=== PATIENT | female | born 1955 | race Caucasian/White ===

== ENCOUNTER → 2017-04-10 10:11 | Outpatient (CLI) | payer MEDICARE, SELFPAY ==
--- NOTE | 2017-04-10 10:15 | MM_ITS ---
MM Dig screening mamm BI w/CAD CAD Screening COMPARISON: Digital mammograms 02/03/2014 and 02/24/2015 INDICATION: There is no personal or family history of breast cancer. There is been previous biopsy right breast. TECHNIQUE: Standard CC and MLO images were obtained. R2 CAD reviewed. FINDINGS: There is a diffusely dense and heterogenic parenchymal pattern lessening the sensitivity of mammography. There are few scattered benign-appearing calcification in each breast and there is a biopsy clip right breast. There is no new or suspicious lesion in either breast and there are no suspicious microcalcifications. IMPRESSION: Stable exam with dense parenchymal pattern, recommend yearly follow-up BI-RADS Category: 2 Benign Finding(s) RECOMMENDED FOLLOW-UP: 1YR - 1 YEAR FOLLOW-UP (A letter has been sent to the patient regarding results of the study.)
== END ==
PROVIDERS: PCP Family Medicine; Visit Provider Obstetrics & Gynecology
DX: Z12.31 Encounter for screening mammogram for malignant neoplasm of breast (principal)
CPT/HCPCS: 77067

== ENCOUNTER → 2018-04-30 10:28 | Outpatient (CLI) | payer MEDICARE, SELFPAY ==
--- NOTE | 2018-04-30 10:30 | XR_ITS ---
XR DEXA axial skeleton HISTORY: ITS.REASON: screening ORDERING PHYSICIAN: Emmanuel Cooper MD PATIENT AGE: 63 years COMPARISON: 05/18/2011 FINDINGS: The BMD measured at the Right femoral neck is 1.050 g/cm squared with a T score of 0.1. This is considered Normal according to the World Health Organization criteria. Fracture risk is Low. The L1 L4 density has a T score of 4.1. Lumbar spine density has increased by 4.8%. The hip density has decreased 5%. IMPRESSION: Normal bone density. Recommend follow-up exam for a 2020
--- NOTE | 2018-04-30 10:30 | MM_ITS ---
MM Dig screening mamm BI w/CAD CAD Screening COMPARISON: Digital mammograms with CAD 02/24/2015 and 04/10/2017 INDICATION: There is no personal or family history of breast cancer. There has been a previous biopsy right breast for benign disease. TECHNIQUE: Standard CC and MLO images were obtained. R2 CAD reviewed. FINDINGS: There is a diffusely dense and heterogenic parenchymal pattern lessening the sensitivity of mammography. There are scattered benign-appearing microcalcifications in each breast. There is a biopsy clip right breast. There is no suspicious lesion and there are no suspicious microcalcifications. IMPRESSION: Stable exam with dense heterogenic parenchyma and no suspicious lesion seen BI-RADS Category: 2 Benign Finding(s) RECOMMENDED FOLLOW-UP: 1YR - 1 YEAR FOLLOW-UP (A letter has been sent to the patient regarding results of the study.)
== END ==
PROVIDERS: PCP Family Medicine; Visit Provider Obstetrics & Gynecology
DX: Z78.0 Asymptomatic menopausal state (principal); Z12.31 Encounter for screening mammogram for malignant neoplasm of breast; Z13.820 Encounter for screening for osteoporosis
CPT/HCPCS: 77067; 77080

== ENCOUNTER → 2019-05-20 08:05 | Outpatient (CLI) | payer MEDICARE, SELFPAY ==
--- NOTE | 2019-05-20 08:12 | XR_ITS ---
PROCEDURE: XR DEXA AXIAL SKELETON CLINICAL HISTORY: Dexa Scan- Post menopausal COMPARISON: No exams were available for comparison FINDINGS: Right femoral neck density is 0.977 grams/centimeters sq with a T-score of 1.2. Left femoral neck density is 0.914 grams/centimeter sq with T-score 0.6. L1-L4 density is 1.318 grams/centimeters sq with a T-score of 2.5. IMPRESSION: Normal bone density. Low fracture risk. Recommend follow-up exam in 2 years Dictated by: Prashanth Bello MD 05/20/2019 12:37 Electronically signed by Prashanth Bello MD in [place] 05/20/2019 12:37
--- NOTE | 2019-05-20 08:12 | MM_ITS ---
PROCEDURE: MM DIG SCREENING MAMM BI W/CAD CLINICAL INDICATION: Routine Screening Mammogram There is no personal or family history of breast cancer. There has been a previous biopsy right breast for benign disease. COMPARISON: [facility] DIG MAMM-SCREEN TOPHER from 02/24/2015 [facility] MM Dig screening mamm BI w/CAD from 04/10/2017 [facility] MM Dig screening mamm BI w/CAD from 04/30/2018 TECHNIQUE: Standard CC and MLO images and 3D Tomosynthesis was obtained. R2 CAD reviewed. FINDINGS: There is a diffusely dense and heterogenic parenchymal pattern somewhat lessening the sensitivity of mammography. Yeyo images are most helpful in this type of breast parenchyma and I see no suspicious abnormality. There is a biopsy clip right breast. There couple of benign-appearing microcalcifications in each breast there is no suspicious lesion and no suspicious microcalcifications. IMPRESSION: Diffusely dense parenchymal pattern with no suspicious lesions seen BI-RAD Category: FOLLOW-UP: 1YR 1 Year Follow-up (A letter has been sent to the patient regarding results of the study.) Dictated by: Dr. Dami Haque MD 05/26/2019 15:[address] Dami Haque MD in [place] 05/26/2019 15:16
== END ==
PROVIDERS: PCP Family Medicine; Visit Provider Obstetrics & Gynecology
DX: Z12.31 Encounter for screening mammogram for malignant neoplasm of breast (principal); Z78.0 Asymptomatic menopausal state
CPT/HCPCS: 77063; 77067; 77080

== ENCOUNTER → 2019-11-18 11:56 | Outpatient (POV) | payer MEDICARE, SELFPAY | PROVIDERS: Visit Provider Nurse Practitioner Family | DX: Z00.00 Encounter for general adult medical examination without abnormal findings (principal) ==

== ENCOUNTER → 2019-12-09 11:07 | Outpatient (CLI) | payer MEDICARE, SELFPAY ==
[2019-12-10 15:03] LABS: H. pylori Breath Test Positive (Negative)
== END ==
PROVIDERS: Visit Provider Nurse Practitioner Family
DX: R10.9 Unspecified abdominal pain (principal); R13.10 Dysphagia, unspecified; B96.81 Helicobacter pylori [H. pylori] as the cause of diseases classified elsewhere; R19.4 Change in bowel habit; R19.7 Diarrhea, unspecified; Z12.11 Encounter for screening for malignant neoplasm of colon
CPT/HCPCS: 83013

== ENCOUNTER → 2019-12-21 08:56 | Outpatient (CLI) | payer MEDICARE, SELFPAY ==
[2019-12-21 10:24] LABS: Coronavirus 19 IgG Antibody Negative (Negative); Coronavirus 19 IgM Antibody Negative (Negative)
== END ==
PROVIDERS: Visit Provider Internal Medicine Gastroenterology
DX: Z01.89 Encounter for other specified special examinations (principal); Z12.11 Encounter for screening for malignant neoplasm of colon
CPT/HCPCS: 36415; 86328

== ENCOUNTER 2019-12-23 09:07 | Day surgery (SDC) | payer MEDICARE, SELFPAY ==
[2019-12-17 12:53] VITALS: BMI 42.0
[2019-12-23] VITALS (8 sets, daily range): BP systolic 123–177; BP diastolic 63–84; PULSE 73–87; RESP 18–20; TEMP 36.6–36.8; O2SAT 94–97
--- NOTE | 2019-12-23 10:52 | HMH.PROC ---
[facility] Procedure Note Procedure Note:: Colonoscopy Procedure Report: Colonoscopy with cold snare polypectomy and Endo Clip placement Endoscopist: Orville Trujillo II, MD Referring physician: ANIRUDH Rodriguez Date of Procedure: December 23, 2019 Equipment: Olympus 180 variable stiffness pediatric colonoscope Sedation: MAC sedation Indication: Mrs. Goodman is a 64-year-old female who is here for follow-up screening/surveillance colonoscopy. She does have a strong family history of colon cancer on her paternal side of the family but is uncertain which family members had colon cancer. Her last colonoscopy was 7 to 8 years ago. She has had some bowel irregularity with intermittent abdominal cramping discomfort and diarrhea. She reports no rectal bleeding or weight loss. Procedure: Prior to the procedure, a history and physical exam was performed, and patient's medications and allergies were reviewed. The risks, benefits and alternatives of the sedation and procedure were discussed with the patient. All questions were answered and informed consent was obtained. The patient was brought to the procedure room. Patient identification and proposed procedure were verified by the physician and the nurse. The patient was placed in a left lateral decubitus position and the scope was passed under direct vision. Throughout the procedure, the patient's blood pressure, pulse, and oxygen saturations were monitored continuously. The colonoscopy was accomplished without difficulty. The patient tolerated the procedure well. Findings: On digital rectal examination there was normal rectal tone. There were no external hemorrhoids. The colonoscope was introduced through the anal canal to the rectum and advanced to the cecum. The ileocecal valve and appendiceal orifice were identified. The scope was advanced a short distance into the ileum which appeared grossly normal. The scope was then withdrawn into the colon. The cecum, ascending and transverse colon and mucosa were grossly normal. There was a 8 mm polyp in the descending colon removed via cold snare polypectomy. There was minor heme at the polypectomy site so a single Endo Clip was placed which provided full hemostasis. There were very mildly scattered diverticuli throughout the descending and sigmoid colon (LEFT colon). The rectum itself was normal. Upon retroflexion within the rectum there were grade 1-2 internal hemorrhoids. The preparation was excellent throughout with [place] Preparation Score of 9. The cecal time was 12 minutes. Impression: 1. Descending colon polyp (8 mm) 2. Mild left-sided diverticulosis 3. Grade 1-2 internal hemorrhoids Plan: I will follow up the polyp pathology and recommend repeat colonoscopy again in 5 years based upon the polyp histology and patient's family history. I would encourage fiber supplementation on a long-term daily maintenance basis.
--- NOTE | 2019-12-23 11:06 | P.PN_ITS ---
[facility] Anesthesia Checklist - Structural Data Admitted From: Home Planned Operative Procedure/s: colonoscopy Consent for Planned Operative Procedure(s) Verified: Yes - Additional verifications Anesthesia Reactions: No Hx Blood Transfusions: No Blood Transfusion Reaction: No - Airway Assessment C-Spine Mobility Assessed: Yes TMJ Mobility Assessed: Yes Dentition: Good Dentition - Neurological Assessment Level of Consciousness: Awake, Alert, Appropriate - Anesthesia Plan Anesthesia Risk discussed: Yes Anesthesia Plan: Verified ASA Class: II Anesthesia Type: MAC [facility] History I have reviewed the patient's past medical history: Yes Medical History: Reports:: Cardiomyopathy, Hypertension, Urinary Tract Infection Denies:: Cancer, Diabetes Mellitus Type 1, Diabetes Mellitus Type 2, Internal Pacemaker, MRSA, Seizures *Have you ever received a pneumonia vaccine?: No *Have you received a flu vaccine this season?: Yes Other Medical History: Reports: Anemia, Chemotherapy, Other. Denies: Blood Transfusion Reaction Anesthesia experience/problems:: none Laterality Cases: Bilateral: Tonsillectomy, Other Other Surgeries: Yes: Other. No: Pacemaker Amputation: No Fractures: No - *Social History Last grade of school completed: Advanced degree Smoking Status: Never smoker Alcohol Intake: never Alcohol Intake Frequency:: other Substance Use Type: denies use *Occupational Status:: disabled Housing: house Household Members: spouse *Travel in the last 8 weeks: None Family Hx:: Hypertension, Diabetes, Stroke, Cancer
== END 2019-12-23 12:15 | disposition home or self-care (01) ==
LOC: OUTP 09:10
PROVIDERS: PCP Family Medicine; Visit Provider Internal Medicine Gastroenterology
PROC: 0DJD8ZZ Inspection of Lower Intestinal Tract, Via Natural or Artificial Opening Endoscopic (ICD-10-PCS; CPT 45378; principal; 2019-12-23 10:00)
DX: Z12.11 Encounter for screening for malignant neoplasm of colon (principal); K63.5 Polyp of colon; K57.30 Diverticulosis of large intestine without perforation or abscess without bleeding; K64.0 First degree hemorrhoids; I10 Essential (primary) hypertension; K21.9 Gastro-esophageal reflux disease without esophagitis; I42.9 Cardiomyopathy, unspecified; D64.9 Anemia, unspecified; Z79.899 Other long term (current) drug therapy
CPT/HCPCS: 45385; 88305

== ENCOUNTER → 2020-03-09 09:53 | Outpatient (CLI) | payer MEDICARE, SELFPAY ==
[2020-03-10 16:00] LABS: H. pylori Breath Test Negative (Negative)
== END ==
PROVIDERS: Visit Provider Nurse Practitioner Family
DX: R13.10 Dysphagia, unspecified (principal); B96.81 Helicobacter pylori [H. pylori] as the cause of diseases classified elsewhere; R19.4 Change in bowel habit; R10.9 Unspecified abdominal pain; Z12.11 Encounter for screening for malignant neoplasm of colon
CPT/HCPCS: 83013

== ENCOUNTER → 2020-04-20 10:25 | Outpatient (CLI) | payer MEDICARE, SELFPAY ==
--- NOTE | 2020-04-20 10:27 | MM_ITS ---
PROCEDURE: MM DIG SCREENING MAMM BI W/CAD Digital Breast Tomosynthesis Included CLINICAL INDICATION: Routine Screening Mammogram There is no personal or family history of breast cancer. There has been a previous biopsy right breast for benign disease. COMPARISON: [facility] MM Dig screening mamm BI w/CAD from 04/10/2017 [facility] MM Dig screening mamm BI w/CAD from 04/30/2018 MG MM DIG SCREENING MAMM BI W/CAD from 05/20/2019 TECHNIQUE: Standard CC and MLO images and 3D Tomosynthesis was obtained. R2 CAD reviewed. FINDINGS: Moderate diffuse somewhat heterogenic fibroglandular densities are seen throughout both breast and the findings are fairly symmetrical and bilateral. There is a biopsy clip right breast. There is a mole marker left breast. There are few scattered benign-appearing microcalcifications in each breast. There is no new or suspicious lesion in either breast and no suspicious microcalcifications. IMPRESSION: Moderate diffuse breast density with no suspicious lesions seen BI-RAD Category: 2 Benign Finding(s) FOLLOW-UP: 1YR 1 Year Follow-up (A letter has been sent to the patient regarding results of the study.) Dictated by: Dr. Dami Haque MD 04/22/2020 10:39 Dr. Dami Haque MD in [place] 04/22/2020 10:39
== END ==
PROVIDERS: PCP Family Medicine; Visit Provider Obstetrics & Gynecology
DX: Z12.31 Encounter for screening mammogram for malignant neoplasm of breast (principal)
CPT/HCPCS: 77063; 77067

== ENCOUNTER → 2020-05-18 09:17 | Outpatient (POV) | payer MEDICARE, SELFPAY | PROVIDERS: Visit Provider Nurse Practitioner Family | DX: Z00.00 Encounter for general adult medical examination without abnormal findings (principal) ==

== ENCOUNTER 2020-10-30 14:30 | Emergency (ER) | payer MEDICARE, SELFPAY ==
[2020-10-30 14:35] VITALS: BP 143/69; PULSE 76; RESP 18; TEMP 37.1; O2SAT 96; BMI 43.9
[2020-10-30 15:05] VITALS: BP 143/69; PULSE 76; RESP 18; TEMP 37.1; O2SAT 96
--- NOTE | 2020-10-30 15:14 | HMH.EDUTC ---
[facility] [place]: Exposure to COVID-19 virus Disposition: Home, Self-Care Condition on Discharge: Good Instructions: DI for COVID-19 (Suspected or Confirmed ), Coronavirus Disease 2019, Preventing the Spread of Coronavirus Discharge Instructions Additional Instructions: *Monitor Temp, Over the counter Motrin or Tylenol as directed/as needed Tylenol every 4 hours and Motrin every 6 hours (as long as your family doctor has told you that you can take it) for fever or pain. and straight to ER if unable to lower temp less than 101.0 after medication given Follow up IMMEDIATELY for new or worsening symptoms or no Noticeable improvement over the next 48-72 hours. 911 for difficulty breathing or swallowing You were tested for today for COVID19 your test result should be back in the next 24-48 hours, you may call to the [facility] to see if your test results are back in the next 48 hours [phone] [facility] hours are 9am-9pm You was given a handout with instructions for Self Quarantine and Self isolation for while you wait on test results and what to do if they are positive If you are positive the Health Dept will be contacting you also Referrals: Shaan Lehman MD [Primary Care Provider] - As needed Time of Disposition: 15:15 Medical Decision Making - Hermilo Inquiry Pt receiving controlled substance: No Hermilo was queried for this patient: No Vital Signs: 10/30/20 14:35 10/30/20 15:05 Temperature 98.7 F 98.7 F Temperature Source Oral Pulse Rate 76 Pulse Rate [Left Brachial] 76 Respiratory Rate 18 18 Blood Pressure 143/69 H Blood Pressure [Left Arm] 143/69 H Blood Pressure Mean [Left Arm] 93 Blood Pressure Source [Left Arm] Automatic Cuff Blood Pressure Position [Left Arm] Sitting 02 Sat by Pulse Oximetry 96 Oxygen Delivery Method Room Air Orders (Tests/Meds): ORDERS Category Date Time Status Covid-19 Nasal PCR ([facility]) Routine Lab 10/30/20 14:45 [place] [facility] [place] - General Stated complaint: covid test Time Seen by Provider: 10/30/20 15:14 Mode of Arrival: Ambulatory Source of Information: Patient Limitations: No Limitations Description of Symptoms (Recalled from Triage Doc. by RN): COVID TEST D/T EXPOSURE. 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 States that she was around a friend last week that has since tested positive for COVID States that she is not having any symptoms but wanted to get tested - Related Data Home Medications Medication Instructions Recorded Confirmed amlodipine 5 mg tablet 5 mg PO DAILY 04/02/18 12/23/19 fluticasone propionate 50 1 spray INTRANASAL DAILY 04/02/18 12/23/19 mcg/actuation nasal spray,suspension hydrochlorothiazide 12.5 mg capsule 12.5 mg PO DAILY 04/02/18 12/23/19 levocetirizine 5 mg tablet 5 mg PO QHS 04/02/18 12/23/19 Montelukast Sodium [Montelukast 10 mg PO HS 03/15/19 12/23/19 10mg Tab] Allergies Allergy/AdvReac Type Severity Reaction Status Date / Time No Known Allergies Allergy Verified 04/10/20 13:34 - Worker's Comp Is this a Worker's Comp case?: No [facility] History - Hepatitis A Screen Drug use history?: No High risk sexual behaviors?: No History of sexually transmitted infection?: No Currently employed?: No Childcare worker?: No Do you have indoor plumbing?: Yes Do you have electricity?: Yes Attestation statement:: This patient has been screened for Hepatitis A risk factors. I have reviewed the patient's past medical history: Yes Medical History: Reports:: Cardiomyopathy, Hypertension, Urinary Tract Infection Denies:: Cancer, Diabetes Mellitus Type 1, Diabetes Mellitus Type 2, Internal Pacemaker, MRSA, Seizures Ot
== END 2020-10-30 15:19 | disposition home or self-care (01) ==
PROVIDERS: Emergency Provider Nurse Practitioner; PCP Family Medicine
DX: Z20.822 Contact with and (suspected) exposure to COVID-19 (principal); I10 Essential (primary) hypertension
CPT/HCPCS: G0463; 99202; U0003

== ENCOUNTER → 2020-11-16 09:09 | Outpatient (POV) | payer MEDICARE, SELFPAY | PROVIDERS: Visit Provider Nurse Practitioner Family | DX: Z00.00 Encounter for general adult medical examination without abnormal findings (principal) ==

== ENCOUNTER 2020-11-25 10:13 | Emergency (ER) | payer MEDICARE, SELFPAY ==
[2020-11-25 12:29] VITALS: PULSE 69; RESP 18; TEMP 36.6; O2SAT 98; BMI 39.9
[2020-11-25 12:32] VITALS: BP 119/76; PULSE 69; RESP 18; TEMP 36.6
--- NOTE | 2020-11-25 12:47 | HMH.EDUTC ---
[facility] [place]: Exposure to COVID-19 virus Disposition: Home, Self-Care Condition on Discharge: Good Instructions: DI for COVID-19 (Suspected or Confirmed ), Preventing the Spread of Coronavirus Discharge Instructions Additional Instructions: Drink plenty of fluids. Take tylenol for pain or fever. Return if you begin to have difficulty breathing. Follow up with your regular doctor. GO TO THE ER FOR ANY WORSENING SYMPTOMS Quarantine until you know the results of your covid-19 test. If it is positive, the health department should call you and give you further instructions about your length of Quarantine and other things. Notify your school or workplace of your results and follow their instructions regarding return to work/school. Referrals: Shaan Lehman MD [Primary Care Provider] - Forms: Work/School Release Time of Disposition: 12:49 Medical Decision Making - Medical Records Medical records reviewed: No: I reviewed the patient's medical records. - Hermilo Inquiry Pt receiving controlled substance: No Vital Signs: 11/25/20 12:29 11/25/20 12:32 Temperature 97.9 F 97.9 F Temperature Source Oral Pulse Rate 69 Pulse Rate [Left] 69 Respiratory Rate 18 18 Blood Pressure 119/76 02 Sat by Pulse Oximetry 98 [facility] [place] - General Stated complaint: Covid Test Time Seen by Provider: 11/25/20 12:47 Mode of Arrival: Ambulatory Source of Information: Patient Limitations: No Limitations Description of Symptoms (Recalled from Triage Doc. by RN): COVID TEST. ASYMPTOMATIC. HEENT Symptoms (Recalled from RN notes): No Resp Symptoms (Recalled from RN notes): No Skin Symptoms (Recalled from RN notes): No MS Symptoms (Recalled from RN notes): No Functional Status (Recalled from RN notes): NA - History of Present Illness Provider Complaint: She was at a wedding this past monday that no one wore a mask besides her at. She denies any symtoms but she would like to be tested for covid. She has been vaccinated back in May. - Related Data Home Medications Medication Instructions Recorded Confirmed amlodipine 5 mg tablet 5 mg PO DAILY 04/02/18 12/23/19 fluticasone propionate 50 1 spray INTRANASAL DAILY 04/02/18 12/23/19 mcg/actuation nasal spray,suspension hydrochlorothiazide 12.5 mg capsule 12.5 mg PO DAILY 04/02/18 12/23/19 levocetirizine 5 mg tablet 5 mg PO QHS 04/02/18 12/23/19 Montelukast Sodium [Montelukast 10 mg PO HS 03/15/19 12/23/19 10mg Tab] Allergies Allergy/AdvReac Type Severity Reaction Status Date / Time No Known Allergies Allergy Verified 04/10/20 13:34 - Worker's Comp Is this a Worker's Comp case?: No [facility] History - Hepatitis A Screen Drug use history?: No High risk sexual behaviors?: No History of sexually transmitted infection?: No Currently employed?: No Childcare worker?: No Do you have indoor plumbing?: Yes Do you have electricity?: Yes Attestation statement:: This patient has been screened for Hepatitis A risk factors. Medical History: Reports:: Cardiomyopathy, Hypertension, Urinary Tract Infection Denies:: Cancer, Diabetes Mellitus Type 1, Diabetes Mellitus Type 2, Internal Pacemaker, MRSA, Seizures Other Medical History: Reports: Anemia, Chemotherapy, Other. Denies: Blood Transfusion Reaction Comment: DEAF, DERMATOMYOSITIS, HYPERTENSION Laterality Cases: Bilateral: Tonsillectomy, Other Other Surgeries: Yes: Other. No: Pacemaker Amputation: No Fractures: No Comment: 1959- REMOVAL OF TUMOR FROM RECTOM. 1966- CYST REMOVED FROM CHIN. 1972- TONSILLECTOMY. 1983- APPENDECTOMY- OPEN. 1998- FX. D&C, DX. LAP, BTC. 1999- LT. THUMB FOR TENDONITIS. 2000- [facility], HEMORRHOIDECTOMY, ER. 2013- RT. KNEE REPLACEMENT. 2015- LT. KNEE REPLACEMENT. 04/01/19--- EGD - Social History Smoking Status: Never smoker Alcohol Intake: never Alcohol Intake Frequency:: other Substance Use Type: denies use Occupational Status: disabled [employer]
== END 2020-11-25 13:00 | disposition home or self-care (01) ==
PROVIDERS: Emergency Provider Nurse Practitioner Family; PCP Family Medicine
DX: Z20.822 Contact with and (suspected) exposure to COVID-19 (principal)
CPT/HCPCS: 99202; G0463; U0003

== ENCOUNTER → 2021-02-23 17:38 | Outpatient (CLI) | payer MEDICARE, SELFPAY | PROVIDERS: PCP Family Medicine; Visit Provider Nurse Practitioner | DX: Z20.822 Contact with and (suspected) exposure to COVID-19 (principal) | CPT/HCPCS: C9803; U0003; U0005 ==

== ENCOUNTER → 2021-04-01 10:21 | Outpatient (CLI) | payer MEDICARE, SELFPAY | PROVIDERS: Visit Provider Nurse Practitioner | DX: U07.1 COVID-19 (principal) | CPT/HCPCS: C9803; U0003; U0005 ==

== ENCOUNTER → 2021-04-26 09:53 | Outpatient (CLI) | payer MEDICARE, SELFPAY ==
--- NOTE | 2021-04-26 09:58 | MM_ITS ---
PROCEDURE INFORMATION: Exam: MG Bilateral Screening 3D Mammography Exam date and time: 04/26/2021 9:58 AM Age: 66 years old Clinical indication: Encounter for screening mammogram for malignant neoplasm of breast TECHNIQUE: Imaging protocol: Bilateral Screening tomosynthesis and 2D mammography including computer-aided detection (CAD) when performed. COMPARISON: 1. MG MM DIG SCREENING MAMM BI W/CAD 04/20/2020 10:37 AM 2. MG MM DIG SCREENING MAMM BI W/CAD 05/20/2019 8:24 AM FINDINGS: MAMMOGRAPHY: Breast composition: The breast tissue is heterogeneously dense, which may obscure small masses. Mass: None. Architectural distortion: None. Calcifications: No suspicious calcifications. Asymmetric density: None. Skin thickening: None. Axillary adenopathy: None. IMPRESSION: No mammographic evidence of malignancy. Annual screening is recommended unless otherwise clinically indicated. ASSESSMENT: BI-RADS Category 1: Negative
== END ==
PROVIDERS: Visit Provider Obstetrics & Gynecology
DX: Z12.31 Encounter for screening mammogram for malignant neoplasm of breast (principal)
CPT/HCPCS: 77063; 77067

== ENCOUNTER → 2021-05-04 14:50 | Outpatient (CLI) | payer MEDICARE, SELFPAY ==
[2021-05-04 15:49] LABS: Adenovirus F 40/41, stool Not Detected (NotDetected); Astrovirus Not Detected (NotDetected); Campylobacter Not Detected (NotDetected); Clostridium Difficile A/B, PCR Not Detected (NotDetected); Cryptosporidium Not Detected (NotDetected); Cyclospora Cayetanesis Not Detected (NotDetected); Entamoeba histolytica Not Detected (NotDetected); Enteroaggregative E coli Not Detected (NotDetected); Enteropathogenic E coli Not Detected (NotDetected); Enterotoxigenic E coli Not Detected (NotDetected); Giardia lamblia Not Detected (NotDetected); Norovirus Not Detected (NotDetected); Plesimonas Shigalloides, PCR Not Detected (NotDetected); Rotavirus A Not Detected (NotDetected); Salmonella, PCR Not Detected (NotDetected); Sapovirus Not Detected (NotDetected); Shiga-like toxin E coli Not Detected (NotDetected); Shigella Enterovasive E coli Not Detected (NotDetected); Vibrio Cholerae Not Detected (NotDetected); Vibrio, PCR Not Detected (NotDetected); Yersinia Entercolitica, PCR Not Detected (NotDetected)
== END ==
LOC: LAB 14:55 → LAB.DROPOF 15:17
PROVIDERS: PCP Nurse Practitioner Family; Visit Provider Nurse Practitioner Family
DX: R19.7 Diarrhea, unspecified (principal)
CPT/HCPCS: 87506

== ENCOUNTER → 2021-09-14 11:54 | Outpatient (CLI) | payer MEDICARE, SELFPAY ==
[2021-09-14 13:02] LABS: Basophils # 0.2 K/mm3 (0-0.2); Basophils % 2.5 % (0.1-2.0); Eosinophils # 0.3 K/mm3 (0.0-0.4); Eosinophils % 3.7 % (0.1-12.0); Hemoglobin 14.3 g/dL (12.2-16.2); Lymphocytes # 3.1 K/mm3 (0.7-4.5); Lymphocytes % 33.2 % (10-50); Mean Corpuscular HGB Conc 33.3 g/dL (31.8-35.4); Mean Corpuscular Hemoglobin 29.7 pg (27.0-31.2); Mean Corpuscular Volume 89.2 fl (81-99); Mean Platelet Volume 8.5 fl (7.4-10.4); Monocytes # 0.4 K/mm3 (0.1-1.0); Monocytes % 4.8 % (1.7-9.3); Neutrophils # 5.1 K/mm3 (1.8-7.8); Neutrophils % 55.9 % (37.0-80.0); Platelet Count 314 K/mm3 (142-424); Red Blood Count 4.82 M/mm3 (4.20-5.40); White Blood Count 9.2 K/mm3 (4.8-10.8)
[2021-09-14 13:28] LABS: Chloride 102 mmol/L (98-107); Potassium 4.3 mmoL/L (3.5-5.1); Sodium 137 mmol/L (136-145)
[2021-09-14 13:29] LABS: Erythrocyte Sedimentation Rate 15 mm/hr (0-30)
[2021-09-14 13:30] LABS: Blood Urea Nitrogen 12 mg/dl (7-17); Estimated Glomerular Filt Rate 72 ml/min (>60); GFR (African American) 87 ML/MIN (>60)
[2021-09-14 13:31] LABS: Alanine Aminotransferase 27 U/L (12-78); Albumin Level 4.1 g/dl (3.5-5.0); Albumin/Globulin Ratio 1.5 (1.1-1.8); Alkaline Phosphatase 94 U/L (38-126); Aspartate Amino Transferase 32 U/L (14-36); Bilirubin,Total 0.3 mg/dl (0.2-1.3); Calcium 9.8 mg/dl (8.4-10.2); Globulin 2.7 g/dL (1.3-3.2); Glucose 134 mg/dl (74-100); Total Protein,Serum 6.8 g/dl (6.3-8.2)
[2021-09-14 13:39] LABS: C-Reactive Protein 7.6 mg/L (0-4)
[2021-09-14 15:22] LABS: Anion Gap 10.3 mEq/L (5-15); Carbon Dioxide 29 mmol/L (22.0-30.0)
== END ==
PROVIDERS: Visit Provider Internal Medicine Rheumatology
DX: E79.0 Hyperuricemia without signs of inflammatory arthritis and tophaceous disease (principal); E50.9 Vitamin A deficiency, unspecified; M25.50 Pain in unspecified joint; M33.90 Dermatopolymyositis, unspecified, organ involvement unspecified; M65.30 Trigger finger, unspecified finger
CPT/HCPCS: 36415; 80053; 84550; 85025; 85651; 86140

== ENCOUNTER → 2022-05-30 10:58 | Outpatient (CLI) | payer MEDICARE, SELFPAY ==
--- NOTE | 2022-05-30 11:03 | MM_ITS ---
PROCEDURE INFORMATION: Exam: MG Bilateral Screening 3D Mammography Exam date and time: 05/30/2022 10:59 AM Age: 67 years old Clinical indication: Screening examination TECHNIQUE: Imaging protocol: Bilateral Screening tomosynthesis and 2D mammography including computer-aided detection (CAD) when performed. COMPARISON: 1. MG MM DIG SCREENING MAMM BI W/CAD 04/26/2021 10:11 AM 2. MG MM DIG SCREENING MAMM BI W/CAD 04/20/2020 10:37 AM FINDINGS: MAMMOGRAPHY: Breast composition: The breasts are heterogeneously dense, which may obscure small masses. Mass: None. Architectural distortion: None. Calcifications: No suspicious calcifications. Asymmetric density: None. Skin thickening: None. Axillary adenopathy: None. IMPRESSION: No mammographic evidence of malignancy. Annual screening is recommended unless otherwise clinically indicated. ASSESSMENT: BI-RADS Category 1: Negative
== END ==
PROVIDERS: Visit Provider Obstetrics & Gynecology
DX: Z12.31 Encounter for screening mammogram for malignant neoplasm of breast (principal)
CPT/HCPCS: 77063; 77067

== ENCOUNTER → 2022-09-08 09:17 | Outpatient (CLI) | payer MEDICARE, SELFPAY ==
[2022-09-08 10:16] LABS: Basophils # 0.1 K/mm3 (0-0.2); Basophils % 0.7 % (0.1-2.0); Eosinophils # 0.2 K/mm3 (0.0-0.4); Hematocrit 44.7 % (37.0-47.0); Hemoglobin 14.5 g/dL (12.2-16.2); Mean Corpuscular HGB Conc 32.5 g/dL (31.8-35.4); Mean Corpuscular Hemoglobin 29.1 pg (27.0-31.2); Mean Corpuscular Volume 89.4 fl (81-99); Mean Platelet Volume 8.2 fl (7.4-10.4); Monocytes # 0.4 K/mm3 (0.1-1.0); Monocytes % 4.2 % (1.7-9.3); Neutrophils # 5.7 K/mm3 (1.8-7.8); Neutrophils % 61.1 % (37.0-80.0); Platelet Count 306 K/mm3 (142-424); Red Blood Count 4.99 M/mm3 (4.20-5.40); Red Cell Distribution Width 14.4 % (11.5-17.5); White Blood Count 9.4 K/mm3 (4.8-10.8)
[2022-09-08 10:47] LABS: Chloride 103 mmol/L (98-107); Potassium 4.3 mmoL/L (3.5-5.1); Sodium 137 mmol/L (136-145)
[2022-09-08 10:50] LABS: Alanine Aminotransferase 23 U/L (12-78); Albumin Level 3.9 g/dl (3.5-5.0); Albumin/Globulin Ratio 1.4 (1.1-1.8); Alkaline Phosphatase 98 U/L (38-126); Anion Gap 12.3 mEq/L (5-15); Aspartate Amino Transferase 27 U/L (14-36); Bilirubin,Total 0.4 mg/dl (0.2-1.3); Blood Urea Nitrogen 12 mg/dl (7-17); Calcium 9.2 mg/dl (8.4-10.2); Carbon Dioxide 26 mmol/L (22.0-30.0); Cholesterol 187 mg/dl (140-200); Estimated Glomerular Filt Rate 84 ml/min (>60); GFR (African American) 102 ML/MIN (>60); Globulin 2.7 g/dL (1.3-3.2); Glucose 115 mg/dl (74-100); Total Protein,Serum 6.6 g/dl (6.3-8.2); Triglycerides 151 mg/dl (30-150); VLDL Cholesterol 30 mg/dL (0-40)
[2022-09-08 10:51] LABS: Chol/HDL Ratio 4.3 (1-3.5); HDL Cholesterol 43 mg/dl (40-60)
[2022-09-08 11:01] LABS: Direct LDL Cholesterol 106.62 mg/dL (100-129)
[2022-09-08 11:20] LABS: 25-OH Vitamin D, Total 27.1 ng/mL (30-100)
[2022-09-08 11:33] LABS: Thyroid Stimulating Hormone 2.04 uIU/mL (0.465-4.68)
[2022-09-08 11:37] LABS: Ferritin 62.8 ng/ml (11.1-264)
[2022-09-09 10:27] LABS: Insulin Level Total 15.5 uIU/mL (2.6-24.9)
[2022-09-09 16:13] LABS: C-Peptide 4.5 ng/mL (1.1-4.4)
== END ==
PROVIDERS: PCP Nurse Practitioner Family; Visit Provider Nurse Practitioner Family
DX: R63.4 Abnormal weight loss (principal); R73.09 Other abnormal glucose; D64.9 Anemia, unspecified; E78.2 Mixed hyperlipidemia; E55.9 Vitamin D deficiency, unspecified
CPT/HCPCS: 36415; 80053; 80061; 82306; 82728; 83036; 83525; 84443; 84681; 85025

== ENCOUNTER 2023-06-14 15:01 | Outpatient (CLI) | payer MEDICARE, SELFPAY ==
--- NOTE | 2023-06-14 15:05 | MM_ITS ---
PROCEDURE INFORMATION: Exam: MG Bilateral Screening 3D Mammography Exam date and time: 06/14/2023 3:07 PM Age: 68 years old Clinical indication: Screening mammogram TECHNIQUE: Imaging protocol: Bilateral Screening tomosynthesis and 2D mammography including computer-aided detection (CAD) when performed. COMPARISON: 1. MG MM DIG SCREENING MAMM BI W/CAD 05/30/2022 10:59 AM 2. MG MM DIG SCREENING MAMM BI W/CAD 04/26/2021 10:11 AM 3. MG MM DIG SCREENING MAMM BI W/CAD 04/20/2020 10:37 AM 4. MG MM DIG SCREENING MAMM BI W/CAD 05/20/2019 8:24 AM FINDINGS: MAMMOGRAPHY: Breast composition: The breast is heterogeneously dense, which may obscure small masses. Mass: None. Architectural distortion: No new or suspicious architectural distortion. Calcifications: Stable benign-appearing calcifications are present. No new or suspicious cluster of microcalcifications have developed. Asymmetric density: No new or suspicious asymmetric density is present Skin thickening: None. Axillary adenopathy: None. IMPRESSION: No mammographic evidence of malignancy. Recommend annual screening mammography unless otherwise clinically indicated. ASSESSMENT: BI-RADS category 1: Negative.
== END 2023-06-14 23:59 ==
LOC: RAD 15:05
PROVIDERS: Visit Provider Obstetrics & Gynecology
DX: Z12.31 Encounter for screening mammogram for malignant neoplasm of breast (principal)
CPT/HCPCS: 77063; 77067